=== PATIENT | female | born 1955 | race Caucasian/White ===

== ENCOUNTER → 2017-10-12 | Outpatient (CLI) | payer MEDICAID ==
--- NOTE | 2017-10-12 13:36 | RADIOLOGY REPORT (SQ) ---
EXAM DESCRIPTION: HIP LEFT AP/LATERAL COMPLETED DATE/TIME: 10/12/2017 11:01 am REASON FOR STUDY: CHRONIC LEFT HIP PAIN M25.559 PAIN IN UNSPECIFIED HIP COMPARISON: None. NUMBER OF VIEWS: Two views. TECHNIQUE: AP pelvis and additional frog-leg view of the left hip. LIMITATIONS: None. FINDINGS: There is joint space narrowing in both hips with near bone on bone contact in the left hip . Subchondral cyst formation left hip. Spondylosis and lower lumbar scoliosis. SI joints are khushboo l. IMPRESSION: Osteoarthritis. TECHNICAL DOCUMENTATION: JOB ID: [id number] [employer]- All Rights Reserved Reading location - IP/workstation name: [email or web address]
== END ==
LOC: OD 10:40
PROVIDERS: ATTEND Family Medicine
DX: M25.552 Pain in left hip (principal); M16.12 Unilateral primary osteoarthritis, left hip

== ENCOUNTER → 2017-11-18 | Day surgery (SDC) | payer MEDICAID ==
[~2017-11-18] MED LIST: BUPIVACAINE HCL 0.5 % INJ/PF 30 ML SDV ONE; LIDOCAINE 1% INJ-PF (10 MG/ML) 30 ML SDV ONE; METHYLPREDNISOLONE ACETATE INJ 40 MG/1 ML ML ONE
--- NOTE | 2017-11-18 14:17 | RADIOLOGY REPORT (SQ) ---
EXAM DESCRIPTION: INJECT/ASPIR HIP/SHLDR/KNEE; FLUORO/NEEDLE PLACEMENT COMPLETED DATE/TIME: 11/18/2017 1:30 pm; 11/18/2017 1:31 pm REASON FOR STUDY: M16.12 UNILATERAL PRIMARY OSTEOARTHRITIS, LEFT HIP M16.12 UNILATERAL PRIMARY OSTE OARTHRITIS, LEFT HIP COMPARISON: Left hip films 10/12/2017 FLUOROSCOPY TIME: 23 seconds 1 digital radiographic image saved to PACS. LIMITATIONS: None. PROCEDURE: SITE OF INJECTION: Left hip LOCALIZING CONTRAST TYPE AND DOSE: 1 mL of Isovue-300 MEDICATION TYPE AND DOSE: 80 mg of Depo-Medrol, 5 mL of 0.5% bupivacaine Using local anesthesia and sterile technique with fluoroscopic guidance, the 22 gauge spinal needle w as advanced into the joint. Iodinated contrast was injected to verify intraarticular placement. This was followed by therapeutic injection of the indicated medications. The needle was removed. There were no immediate complications. Preprocedure pain level: 8/10. Postprocedure pain level: 0/10. IMPRESSION: THERAPEUTIC INJECTION OF THE left hip JOINT ABOVE. COMMENT: Patient medication list reviewed: Yes- Quality ID# [id number]:Eligible professional attests to doc umenting in the medical record they obtained, updated, or reviewed the patient's current medications. . Quality ID 145: Final reports for procedures using fluoroscopy that document radiation exposure agusto sandy, or exposure time and number of fluorographic images (if radiation exposure indices are not avail able) TECHNICAL DOCUMENTATION: JOB ID: [id number] [employer]- All Rights Reserved Reading location - IP/workstation name: [email or web address]
--- NOTE | 2017-11-18 14:17 | RADIOLOGY REPORT (SQ) ---
EXAM DESCRIPTION: INJECT/ASPIR HIP/SHLDR/KNEE; FLUORO/NEEDLE PLACEMENT COMPLETED DATE/TIME: 11/18/2017 1:30 pm; 11/18/2017 1:31 pm REASON FOR STUDY: M16.12 UNILATERAL PRIMARY OSTEOARTHRITIS, LEFT HIP M16.12 UNILATERAL PRIMARY OSTE OARTHRITIS, LEFT HIP COMPARISON: Left hip films 10/12/2017 FLUOROSCOPY TIME: 23 seconds 1 digital radiographic image saved to PACS. LIMITATIONS: None. PROCEDURE: SITE OF INJECTION: Left hip LOCALIZING CONTRAST TYPE AND DOSE: 1 mL of Isovue-300 MEDICATION TYPE AND DOSE: 80 mg of Depo-Medrol, 5 mL of 0.5% bupivacaine Using local anesthesia and sterile technique with fluoroscopic guidance, the 22 gauge spinal needle w as advanced into the joint. Iodinated contrast was injected to verify intraarticular placement. This was followed by therapeutic injection of the indicated medications. The needle was removed. There were no immediate complications. Preprocedure pain level: 8/10. Postprocedure pain level: 0/10. IMPRESSION: THERAPEUTIC INJECTION OF THE left hip JOINT ABOVE. COMMENT: Patient medication list reviewed: Yes- Quality ID# [id number]:Eligible professional attests to doc umenting in the medical record they obtained, updated, or reviewed the patient's current medications. . Quality ID 145: Final reports for procedures using fluoroscopy that document radiation exposure agusto sandy, or exposure time and number of fluorographic images (if radiation exposure indices are not avail able) TECHNICAL DOCUMENTATION: JOB ID: [id number] [employer]- All Rights Reserved Reading location - IP/workstation name: [email or web address]
== END ==
LOC: RAD 12:35
PROVIDERS: ATTEND Orthopaedic Surgery
DX: M16.12 Unilateral primary osteoarthritis, left hip (principal)
CPT/HCPCS: 20610; 77002; J3490 ×2; J1020

== ENCOUNTER 2019-03-16 14:53 | Inpatient (IN) | payer MEDICAID ==
[~2019-03-16 14:53] MED LIST changes: -BUPIVACAINE HCL 0.5 % INJ/PF 30 ML SDV ONE; -LIDOCAINE 1% INJ-PF (10 MG/ML) 30 ML SDV ONE; -METHYLPREDNISOLONE ACETATE INJ 40 MG/1 ML ML ONE; +REGADENOSON INJ 0.4 MG/5 ML DISP.SYRIN IV ONE
[2019-03-16] MEDS ORDERED: FENTANYL CITRATE INJ/PF 100 MCG/2 ML AMPUL IV ONE (15:35)
--- NOTE | 2019-03-16 15:44 | ER Document Report ---
ED Hip Pain/Injury - General Chief Complaint: Hip Pain Stated Complaint: LEFT HIP PAIN Time Seen by Provider: 03/16/19 15:09 Primary Care Provider: CARROL LANDIS MD [NO LOCAL MD] - Follow up as needed Notes: 63-year-old female with remote history of PE and ACS x2 with chronic degenerative hip problems presents to the emergency department after fall x2 on a wet floor at her house prior to arrival. Patient states that she is working with [facility] and they are trying to put off a hip replacement for as long as possible to feel that she does need one. Patient states that she was always in pain but it comes and goes and after she fell she states that it "felt like it popped out but did not pop back in". No clear history of hip dislocations. Denies acute shortness of breath or chest pain. Patient cannot bear any weight on at all and cannot move it at all secondary to pain. Posterior tibialis pulse was palpated and she has brisk cap refill. Patient is in acute pain and my exam was limited pending analgesia. TRAVEL OUTSIDE OF THE [place] IN LAST 30 DAYS: No - Related Data Allergies/Adverse Reactions: No Known Allergies Allergy (Verified 10/01/15 15:13) Past Medical History - Social History Smoking Status: Unknown if Ever Smoked Family History: CAD Patient has suicidal ideation: No Patient has homicidal ideation: No - Past Medical History Cardiac Medical History: Reports: Hx Heart Attack, Hx Hypercholesterolemia, Hx Hypertension Past Surgical History: Reports: Hx Tubal Ligation - Immunizations Immunizations up to date: Yes Hx Diphtheria, Pertussis, Tetanus Vaccination: Yes Review of Systems - Review of Systems Constitutional: See HPI EENT: No symptoms reported Cardiovascular: See HPI Respiratory: See HPI Gastrointestinal: No symptoms reported Genitourinary: No symptoms reported Female Genitourinary: No symptoms reported Musculoskeletal: See HPI Skin: No symptoms reported Hematologic/Lymphatic: No symptoms reported Neurological/Psychological: See HPI Physical Exam - Vital signs Vitals: Temp Pulse Resp BP Pulse Ox 98.3 F 70 18 148/74 H 98 03/16/19 15:05 03/16/19 15:05 03/16/19 15:05 03/16/19 15:05 03/16/19 15:05 - Notes Notes: PHYSICAL EXAMINATION: Reviewed vital signs and charting by RN GENERAL: Alert, interacts well. No acute distress. HEAD: Normocephalic, atraumatic. EYES: Pupils equal and round. Extraocular movements intact. ENT: Oral mucosa moist, tongue midline. NECK: Full range of motion. Trachea midline. ABDOMEN: soft, non-tender. No distention. Bowel sounds present EXTREMITIES: Patient is resting her left leg in any position of comfort and she is unable to move it secondary to pain, posterior tibialis pulse palpated 1+, brisk cap refill, no tenderness to palpation over the knee or the ankle, there appears to be a deformity of the left hip but unclear if that is due to positioning PSYCH: Normal affect, normal mood. SKIN: Warm, dry, normal turgor. No rashes or lesions noted. Course - Re-evaluation Re-evalutation: 03/16/19 15:45 Patient is in mild distress and nontoxic appearing, when trying to manipulate her leg she is in acute pain. Even pulling off her shoe elicited significant pain. I am going to place an IV, give her fentanyl 50 mcg once prior to x-ray to help assist with positioning. 03/16/19 17:37 Patient was still in acute pain and I gave her Dilaudid 0.5 mg IV once. X-ray was complete which did show a left intertrochanteric fracture with varus deformity. I called Dr. Wilder, orthopedic surgeon on-call, who requested, because of her medical history, she be admitted under medicine for medical clearance prior to performing surgery in the morning. I spoke with Dr. Arnett, hospitalist, who accepted the patient for full admission to the telemetry unit. - Vital Signs Vital signs: Temp Pulse Resp BP Pulse Ox 98.3 F 70 18 148/74 H 98 03/16/19 15:05 03/16/19 15:05 03/16/19 15:05 03/16/19 15:05 03/16/19 15:05 - Laboratory Result Diagrams: 03/16/19 17:25 03/16/19 17:25 Discharge - Discharge Clinical Impression: Intertrochanteric fracture of left femur Qualifiers: Encounter type: initial encounter Fracture type: closed Fracture alignment: displaced Qualified Code(s): S72.142A - Displaced intertrochanteric fracture of left femur, initial encounter for closed fracture Condition: Stable Disposition: ADMITTED INPATIENT Admitting Provider: Beto (Hospitalist) Unit Admitted: Telemetry Referrals: CARROL LANDIS MD [NO LOCAL MD] - Follow up as needed
[2019-03-16] MEDS ORDERED: HYDROMORPHONE HCL INJ/PF 2 MG/ML AMPULE IV ONE (16:10)
--- NOTE | 2019-03-16 17:11 | RADIOLOGY REPORT (SQ) ---
EXAM DESCRIPTION: HIP LEFT AP/LATERAL COMPLETED DATE/TIME: 03/16/2019 4:57 pm REASON FOR STUDY: Fall and pain with ambulation. COMPARISON: 03/05/2016 NUMBER OF VIEWS: Two views. TECHNIQUE: AP and frog-leg view of the left hip. LIMITATIONS: None. FINDINGS: MINERALIZATION: Normal. LEFT HIP: There is an intratrochanteric left hip fracture with resulting varus deformity. OPPOSITE HIP: Degenerative changes only. SOFT TISSUES: No findings. OTHER: No other significant finding. IMPRESSION: Intratrochanteric left hip fracture. Resulting varus deformity. COMMENT: Pelvic fractures are often occult on plain radiographs. If strong clinical suspicion for f racture, recommend CT or MR. TECHNICAL DOCUMENTATION: JOB ID: [id number] [employer]- All Rights Reserved Reading location - IP/workstation name: [email or web address]
[2019-03-16 17:41] LABS: ABSOLUTE LYMPHOCYTES (AUTO) 0.9 10^3/uL (0.5-4.7); ABSOLUTE MONOCYTES (AUTO) 0.7 10^3/uL (0.1-1.4); ABSOLUTE NEUT (AUTO) 10.2 10^3/uL (1.7-8.2); BASOPHILS % (AUTO) 0.2 % (0-2); HEMATOCRIT 36.3 % (36.0-47.0); HEMOGLOBIN 12.5 g/dL (12.0-15.5); LYMPHOCYTES % (AUTO) 7.5 % (13-45); MEAN CORPUSCULAR HEMOGLOBIN 31.2 pg (27.0-33.4); MEAN CORPUSCULAR HGB CONC 34.5 g/dL (32.0-36.0); MEAN CORPUSCULAR VOLUME 91 fl (80-97); MONOCYTES % (AUTO) 5.8 % (3-13); PLATELET COUNT 233 10^3/uL (150-450); RED BLOOD COUNT 4.01 10^6/uL (3.72-5.28); SEGMENTED NEUTROPHILS % (AUTO) 86.5 % (42-78); TOTAL CELLS COUNTED % (AUTO) 100 %; WHITE BLOOD COUNT 11.8 10^3/uL (4.0-10.5)
[2019-03-16 17:48] LABS: INTERNATIONAL RATION (INR) 1.21; PROTHROMBIN TIME 15.4 SEC (11.4-15.4)
[2019-03-16 17:56] LABS: ALBUMIN 3.1 g/dL (3.5-5.0); ALKALINE PHOSPHATASE 70 U/L (38-126); ANION GAP 9 (5-19); ASPARTATE AMINO TRANSFERASE 25 U/L (14-36); BILIRUBIN,DIRECT 0.2 mg/dL (0.0-0.4); BILIRUBIN,TOTAL 0.2 mg/dL (0.2-1.3); BLOOD UREA NITROGEN 17 mg/dL (7-20); CALCIUM 7.7 mg/dL (8.4-10.2); CARBON DIOXIDE 20 mmol/L (22-30); CHLORIDE 111 mmol/L (98-107); GLUCOSE 92 mg/dL (75-110); TOTAL PROTEIN 5.7 g/dL (6.3-8.2)
[2019-03-16 18:00] LABS: POTASSIUM 2.7 mmol/L (3.6-5.0)
[2019-03-16] MEDS ORDERED: POTASSIUM CHLORIDE 10 MEQ CAPSULE.ER PO ONE (18:02)
[2019-03-16] MEDS: POTASSI CL 20 MEQ/50 ML RIDER 20 MEQ/50 ML RTUPB IV SCH ×2 (18:37→20:20)
[2019-03-16] MEDS ORDERED: ONDANSETRON HCL INJ/PF 4 MG/2 ML SDV IV PRN (19:21)
[2019-03-16] MEDS ORDERED: IPRATROPIUM/ALBUTEROL 0.5-2.5 MG/3 ML AMPUL NEB PRN (19:21)
[2019-03-16] MEDS ORDERED: MAG HYDROX/AL HYDROX/SIMETH SUSP 30 ML UDCUP PO PRN (19:21)
[2019-03-16] MEDS ORDERED: MAGNESIUM HYDROXIDE SUSP 30 ML UDCUP PO PRN (19:21)
[2019-03-16] MEDS ORDERED: ACETAMINOPHEN 325 MG TABLET PO PRN (19:21)
[2019-03-16] MEDS ORDERED: ACETAMINOPHEN 650 MG SUPP.RECT PR PRN (19:21)
[2019-03-16] MEDS ORDERED: BISACODYL 5 MG TABEC PO PRN (19:45)
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
[2019-03-16] MEDS: FENTANYL CITRATE INJ/PF 100 MCG/2 ML AMPUL IV PRN (20:19)
[2019-03-16] MEDS: IBUPROFEN 800 MG TABLET PO PRN (21:17)
[2019-03-16 21:27] LABS: AMORPHOUS SEDIMENT,URINE TRACE /HPF; APPEARANCE,URINE CLOUDY; BILIRUBIN,URINE NEGATIVE (NEGATIVE); COLOR,URINE AMBER; GLUCOSE, URINE NEGATIVE (NEGATIVE); KETONES,URINE 20 mg/dL (NEGATIVE); LEUKOCYTE ESTERASE,URINE SMALL (NEGATIVE); NITRITE,URINE NEGATIVE (NEGATIVE); PROTEIN,URINE 30 mg/dL (NEGATIVE); URINE SPECIFIC GRAVITY 1.028
[2019-03-16] MEDS: METOPROLOL TARTRATE 25 MG TABLET PO SCH (23:22)
[2019-03-17] MEDS ORDERED: NICOTINE 21 MG/24 HR PATCH.TD24 ONE (02:18)
[2019-03-17] MEDS: NICOTINE 21 MG/24 HR PATCH.TD24 TD PRN (02:27)
[2019-03-17] MEDS: DEXTROSE 5%-NORMAL SALINE 1,000 ML IV PRN ×4 (02:28→21:15)
[2019-03-17] MEDS: TEMAZEPAM 15 MG CAPSULE PO PRN ×2 (02:32→21:15)
[2019-03-17] MEDS: PANTOPRAZOLE SODIUM 40 MG TABLET.DR PO SCH (05:55)
[2019-03-17] MEDS: FENTANYL CITRATE INJ/PF 100 MCG/2 ML AMPUL IV PRN ×3 (05:57→15:05)
[2019-03-17 06:15] LABS: ABSOLUTE LYMPHOCYTES (AUTO) 1.1 10^3/uL (0.5-4.7); ABSOLUTE MONOCYTES (AUTO) 0.6 10^3/uL (0.1-1.4); ABSOLUTE NEUT (AUTO) 4.3 10^3/uL (1.7-8.2); BASOPHILS % (AUTO) 0.3 % (0-2); EOSINOPHILS % (AUTO) 0.1 % (0-6); HEMATOCRIT 34.8 % (36.0-47.0); HEMOGLOBIN 11.9 g/dL (12.0-15.5); LYMPHOCYTES % (AUTO) 18.5 % (13-45); MEAN CORPUSCULAR HEMOGLOBIN 31.3 pg (27.0-33.4); MEAN CORPUSCULAR HGB CONC 34.1 g/dL (32.0-36.0); MEAN CORPUSCULAR VOLUME 92 fl (80-97); MONOCYTES % (AUTO) 9.8 % (3-13); PLATELET COUNT 219 10^3/uL (150-450); SEGMENTED NEUTROPHILS % (AUTO) 71.3 % (42-78); TOTAL CELLS COUNTED % (AUTO) 100 %
[2019-03-17 06:39] LABS: ANION GAP 8 (5-19); BLOOD UREA NITROGEN 20 mg/dL (7-20); CALCIUM 8.8 mg/dL (8.4-10.2); CARBON DIOXIDE 25 mmol/L (22-30); CHLORIDE 108 mmol/L (98-107); GLUCOSE 122 mg/dL (75-110); POTASSIUM 3.3 mmol/L (3.6-5.0)
--- NOTE | 2019-03-17 08:01 | PDOC CONSULTATION ---
Consultation Consult Date: 03/17/19 Attending physician:: CHELO MOSLEY Provider Consulted: RADHA MANJARREZ History of Present Illness Admission Date/PCP: 03/16/19 19:28 BRUNILDA CHAMPION PA-C Patient complains of: Left hip pain History of Present Illness: BEKAH IBANEZ is a 63 year old female who is a community ambulator with previous NH history and pulmonary embolism history who was cleaning up her dog in the bathroom when she inadvertently tripped falling onto her left hip. She attempted to ambulate but once again fell was unable to ambulate. He was brought to emergency room where x-rays demonstrated fracture. Patient states her pain was worse with any motion has slightly improved with current pain regimen. Denies numbness or tingling. She has had extensive work-up in her left hip for osteoarthritis. Current pain 5/5. Past Medical History Cardiac Medical History: Reports: Myocardial Infarction, Hyperlipidema, Hype rtension, Pulmonary Embolism Pulmonary Medical History: Reports: Chronic Obstructive Pulmonary Disease (COPD) EENT Medical History: Reports: Eyes - Posttrauma head plastic lens implant Neurological Medical History: Denies: Hemorrhagic CVA, Ischemic CVA, Multiple Sclerosis Endocrine Medical History: Denies: Diabetes Mellitus Type 1, Diabetes Mellitus Type 2, Hyperthyroidism, Hypothyroidism, Obesity Renal/ Medical History: Denies: Chronic Kidney Disease, Nephrolithiasis Malignancy Medical History: Reports: None GI Medical History: Reports: None Musculoskeltal Medical History: Reports: Arthritis, Other - Chronic low back pain Skin Medical History: Reports: None Psychiatric Medical History: Reports: Depression, Tobacco Dependency Denies: Alcohol Dependency, Bipolar Disorder Traumatic Medical History: Reports: Other Hematology: Denies: Anemia, Bleeding Tendencies, Heparin Induced Thrombocytopenia Infectious Medical History: Reports: None Past Surgical History Past Surgical History: Reports: Tubal Ligation Social History Lives with: Alone Smoking Status: Current Every Day Smoker Cigarettes Packs Per Day: 1 Frequency of Alcohol Use: None Hx Recreational Drug Use: No - Patient states no but looking through old records it does mention substance Drugs: None Hx Prescription Drug Abuse: No - Advance Directive Resuscitation Status: Full Code Family History Family History: CAD, COPD, Other - Parkinson's disease, vascular disease with aneurysm Parental Family History Reviewed: No Children Family History Reviewed: No Sibling(s) Family History Reviewed.: No Medication/Allergy Home Medications: Clonazepam [Klonopin 1 mg Tablet] 1 mg PO BID 03/16/19 Duloxetine HCl [Cymbalta 20 mg Capsule.dr] 20 mg PO DAILY 03/16/19 Ibuprofen [Motrin 800 mg Tablet] 800 mg PO Q8HP PRN 03/16/19 Metoprolol Tartrate [Lopressor 25 mg Tablet] 25 mg PO Q12 03/16/19 Tramadol HCl [Ultram 50 mg Tablet] 50 mg PO Q8HP PRN 03/16/19 Allergies/Adverse Reactions: Xakjvhn-Gfs-Bgb Reductase Inhibitor Allergy (Intermediate, Verified 03/16/19 19:59) Blisters Review of Systems Constitutional: ABSENT: chills, fever(s), headache(s), weight gain, weight loss Eyes: ABSENT: visual disturbances Ears: ABSENT: hearing changes Cardiovascular: ABSENT: chest pain, dyspnea on exertion, edema, orthropnea, palpitations Respiratory: ABSENT: cough, hemoptysis Gastrointestinal: ABSENT: abdominal pain, constipation, diarrhea, hematemesis, hematochezia, nausea, vomiting Genitourinary: ABSENT: dysuria, hematuria Musculoskeletal: PRESENT: as per HPI Integumentary: ABSENT: rash, wounds Neurological: ABSENT: abnormal gait, abnormal speech, confusion, dizziness, foca l weakness, syncope Psychiatric: ABSENT: anxiety, depression, homidical ideation, suicidal ideation Endocrine: ABSENT: cold intolerance, heat intolerance, menstrual abnormalities, polydipsia, polyuria Hematologic/Lymphatic: ABSENT: easy bleeding, easy bruising, lymphadenopathy Physical Exam Vital Signs: Temp Pulse Resp BP Pulse Ox 98.3 F 61 17 116/61 98 03/16/19 23:22 03/17/19 02:00 03/16/19 23:22 03/16/19 23:22 03/16/19 23:22 Intake & Output 03/16/19 03/17/19 03/18/19 06:59 06:59 06:59 Intake Total 93 Output Total 300 Balance -207 Weight 45.8 kg General appearance: PRESENT: no acute distress, well-developed, well-nourished Head exam: PRESENT: atraumatic, normocephalic Eye exam: PRESENT: conjunctiva pink, EOMI, PERRLA. ABSENT: scleral icterus Ear exam: PRESENT: normal external ear exam Mouth exam: PRESENT: moist, tongue midline Teeth exam: PRESENT: poor dentation Neck exam: PRESENT: full ROM. ABSENT: carotid bruit, JVD, lymphadenopathy, thyromegaly Cardiovascular exam: PRESENT: RRR. ABSENT: diastolic murmur, rubs, systolic murmur Pulses: PRESENT: normal dorsalis pedis pul, +2 pedal pulses bilateral Vascular exam: PRESENT: normal capillary refill GI/Abdominal exam: PRESENT: normal bowel sounds, soft. ABSENT: distended, guarding, mass, organolmegaly, rebound, tenderness Rectal exam: PRESENT: deferred Musculoskeletal exam: PRESENT: other - Left hip: Positive logroll. Short/externally rotated. Moderate thigh swelling without change, intact plantarflexion/dorsiflexion. No sensory deficits. No calf tenderness. Neurological exam: PRESENT: alert, awake, oriented to person, oriented to place, oriented to time, oriented to situation, CN II-XII grossly intact. ABSENT: motor sensory deficit Psychiatric exam: PRESENT: appropriate affect, normal mood. ABSENT: homicidal ideation, suicidal ideation Skin exam: PRESENT: dry, intact, warm. ABSENT: cyanosis, rash Results Laboratory Results: 03/17/19 05:25 03/17/19 05:25 03/16/19 03/16/19 03/16/19 16:37 17:25 17:25 WBC 11.8 H RBC 4.01 Hgb 12.5 Hct 36.3 MCV 91 MCH 31.2 MCHC 34.5 RDW 13.0 Plt Count 233 Seg Neutrophils % 86.5 H Sodium 140.4 Potassium 2.7 L* Chloride 111 H Carbon Dioxide 20 L Anion Gap 9 BUN 17 Creatinine 0.59 Est GFR ( Amer) > 60 Glucose 92 Calcium 7.7 L Magnesium Total Bilirubin 0.2 AST 25 Alkaline Phosphatase 70 Total Protein 5.7 L Albumin 3.1 L TSH Urine Color SHELBY Urine Appearance CLOUDY Urine pH 5.0 Ur Specific [place] 1.028 Urine Protein 30 H Urine Glucose (UA) NEGATIVE Urine Ketones 20 H Urine Blood MODERATE H Urine Nitrite NEGATIVE Ur Leukocyte Esterase SMALL H Urine WBC (Auto) 20 Urine RBC (Auto) 15 Blood Type Antibody Screen 03/16/19 03/17/19 03/17/19 17:25 05:25 05:25 WBC 6.0 RBC 3.80 Hgb 11.9 L Hct 34.8 L MCV 92 MCH 31.3 MCHC 34.1 RDW 13.0 Plt Count 219 Seg Neutrophils % 71.3 Sodium 141.2 Potassium 3.3 L Chloride 108 H Carbon Dioxide 25 Anion Gap 8 BUN 20 Creatinine 0.60 Est GFR ( Amer) > 60 Glucose 122 H Calcium 8.8 Magnesium 1.9 Total Bilirubin AST Alkaline Phosphatase Total Protein Albumin TSH Urine Color Urine Appearance Urine pH Ur Specific [place] Urine Protein Urine Glucose (UA) Urine Ketones Urine Blood Urine Nitrite Ur Leukocyte Esterase Urine WBC (Auto) Urine RBC (Auto) Blood Type A POSITIVE Antibody Screen NEGATIVE 03/17/19 05:25 WBC RBC Hgb Hct MCV MCH MCHC RDW Plt Count Seg Neutrophils % Sodium Potassium Chloride Carbon Dioxide Anion Gap BUN Creatinine Est GFR ( Amer) Glucose Calcium Magnesium Total Bilirubin AST Alkaline Phosphatase Total Protein Albumin TSH 0.65 Urine Color Urine Appearance Urine pH Ur Specific [place] Urine Protein Urine Glucose (UA) Urine Ketones Urine Blood Urine Nitrite Ur Leukocyte Esterase Urine WBC (Auto) Urine RBC (Auto) Blood Type Antibody Screen Impressions: Hip X-Ray 03/16/19 00:00 IMPRESSION: Intratrochanteric left hip fracture. Resulting varus deformity. Status: Image reviewed by - I have reviewed patient's radiographs which demonstrate intertrochanteric left hip fracture with associated osteoarthritis Assessment & Plan - Diagnosis (1) Intertrochanteric fracture of left femur Qualifiers: Encounter type: initial encounter Fracture type: closed Fracture alignment: displaced Qualified Code(s): S72.142A - Displaced intertrochanteric fracture of left femur, initial encounter for closed fracture Is this a current diagnosis for this admission?: Yes Plan: Patient sustained a left intertrochanteric hip fracture unfortunately she has associated osteoarthritis but given the location of the fracture primary total hip arthroplasty is not indicated and patient understands she may require future surgery given her osteoarthritis but currently plan is to proceed with definitive fixation. Once patient is medically cleared for operative intervention we will proceed with operative treatment. Plan is to proceed with operative intervention on 03/17/2019. Surgical procedure has been explained to the patient procedure includes left hip intramedullary nail risk and benefits have been explained patient is verbalized understanding consented for surgical procedure. Risks explained include anesthetic complications, excessive bleeding, infection, injury to surrounding nerves, vessels and tendons, br uising, healing difficulties, scar formation, hardware complication, posttraumatic arthritis and any unforseen complication.
--- NOTE | 2019-03-17 08:14 | EKG REPORT ---
SEVERITY:- ABNORMAL ECG - SINUS RHYTHM ABNORMAL T, CONSIDER ISCHEMIA, DIFFUSE LEADS PROLONGED QT INTERVAL : Confirmed by: Rica Dexter MD 17-Mar-2019 08:13:01
--- NOTE | 2019-03-17 08:14 | EKG REPORT ---
SEVERITY:- ABNORMAL ECG - SINUS BRADYCARDIA NONSPECIFIC T ABNORMALITIES, DIFFUSE LEADS : Confirmed by: Rica Dexter MD 17-Mar-2019 08:13:18
[2019-03-17] MEDS: KETOROLAC TROMETHAMINE INJ/PF 30 MG/1 ML SDV IV PRN (09:29)
[2019-03-17] MEDS: POTASSI CL 20 MEQ/50 ML RIDER 20 MEQ/50 ML RTUPB IV SCH ×2 (09:30→11:07)
[2019-03-17] MEDS: DOCUSATE SODIUM 100 MG CAPSULE PO SCH ×2 (09:34→19:30)
[2019-03-17] MEDS: METOPROLOL TARTRATE 25 MG TABLET PO SCH ×2 (09:34→21:14)
[2019-03-17] MEDS ORDERED: NICOTINE 21 MG/24 HR PATCH.TD24 TD PRN (10:00)
[2019-03-17] MEDS: LISINOPRIL 5 MG TABLET PO SCH (10:00)
--- NOTE | 2019-03-17 15:06 | PDOC PROGRESS REPORT ---
Subjective Progress Note for:: 03/17/19 Subjective:: This is a 63 year old female with a history of coronary artery disease ([place] 2016- no stenting or intervention) and pulmonary embolism at 21 years old likely from oral contraceptives who sustained a left subcapital fracture after a mechanical fall. No acute event overnight. She does complain of pain in the left hip. Denies chest pain shortness of breath or chest pain. Reason For Visit: LEFT HIP FRACTURE Physical Exam Vital Signs: Temp Pulse Resp BP Pulse Ox 98.6 F 63 16 125/70 100 03/17/19 11:08 03/17/19 11:08 03/17/19 11:08 03/17/19 11:08 03/17/19 11:08 Intake & Output 03/16/19 03/17/19 03/18/19 06:59 06:59 06:59 Intake Total 93 1078 Output Total 300 Balance -207 1078 Weight 100 lb 15.547 oz General appearance: PRESENT: no acute distress, well-developed, well-nourished Head exam: PRESENT: atraumatic, normocephalic Eye exam: PRESENT: conjunctiva pink, EOMI, PERRLA. ABSENT: scleral icterus Ear exam: PRESENT: normal external ear exam Neck exam: ABSENT: carotid bruit, JVD, lymphadenopathy, thyromegaly Respiratory exam: PRESENT: clear to auscultation heriberto. ABSENT: rales, rhonchi, wheezes Cardiovascular exam: PRESENT: RRR. ABSENT: diastolic murmur, rubs, systolic murmur Pulses: PRESENT: normal dorsalis pedis pul GI/Abdominal exam: PRESENT: normal bowel sounds, soft. ABSENT: distended, guarding, mass, organolmegaly, rebound, tenderness Rectal exam: PRESENT: deferred Extremities exam: PRESENT: full ROM. ABSENT: calf tenderness, clubbing, pedal edema Neurological exam: PRESENT: alert, awake, oriented to person, oriented to place, oriented to time, oriented to situation, CN II-XII grossly intact. ABSENT: motor sensory deficit Results Laboratory Results: 03/17/19 05:25 03/17/19 05:25 03/16/19 03/16/19 03/16/19 16:37 17:25 17:25 WBC 11.8 H RBC 4.01 Hgb 12.5 Hct 36.3 MCV 91 MCH 31.2 MCHC 34.5 RDW 13.0 Plt Count 233 Seg Neutrophils % 86.5 H Sodium 140.4 Potassium 2.7 L* Chloride 111 H Carbon Dioxide 20 L Anion Gap 9 BUN 17 Creatinine 0.59 Est GFR ( Amer) > 60 Glucose 92 Calcium 7.7 L Magnesium Total Bilirubin 0.2 AST 25 Alkaline Phosphatase 70 Total Protein 5.7 L Albumin 3.1 L TSH Urine Color [place] Urine Appearance CLOUDY Urine pH 5.0 Ur Specific [place] 1.028 Urine Protein 30 H Urine Glucose (UA) NEGATIVE Urine Ketones 20 H Urine Blood MODERATE H Urine Nitrite NEGATIVE Ur Leukocyte Esterase SMALL H Urine WBC (Auto) 20 Urine RBC (Auto) 15 Blood Type Antibody Screen 03/16/19 03/17/19 03/17/19 17:25 05:25 05:25 WBC 6.0 RBC 3.80 Hgb 11.9 L Hct 34.8 L MCV 92 MCH 31.3 MCHC 34.1 RDW 13.0 Plt Count 219 Seg Neutrophils % 71.3 Sodium 141.2 Potassium 3.3 L Chloride 108 H Carbon Dioxide 25 Anion Gap 8 BUN 20 Creatinine 0.60 Est GFR ( Amer) > 60 Glucose 122 H Calcium 8.8 Magnesium 1.9 Total Bilirubin AST Alkaline Phosphatase Total Protein Albumin TSH Urine Color Urine Appearance Urine pH Ur Specific [place] Urine Protein Urine Glucose (UA) Urine Ketones Urine Blood Urine Nitrite Ur Leukocyte Esterase Urine WBC (Auto) Urine RBC (Auto) Blood Type A POSITIVE Antibody Screen NEGATIVE 03/17/19 05:25 WBC RBC Hgb Hct MCV MCH MCHC RDW Plt Count Seg Neutrophils % Sodium Potassium Chloride Carbon Dioxide Anion Gap BUN Creatinine Est GFR ( Amer) Glucose Calcium Magnesium Total Bilirubin AST Alkaline Phosphatase Total Protein Albumin TSH 0.65 Urine Color Urine Appearance Urine pH Ur Specific [place] Urine Protein Urine Glucose (UA) Urine Ketones Urine Blood Urine Nitrite Ur Leukocyte Esterase Urine WBC (Auto) Urine RBC (Auto) Blood Type Antibody Screen Impressions: Hip X-Ray 03/16/19 00:00 IMPRESSION: Intratrochanteric left hip fracture. Resulting varus deformity. Assessment and Plan - Diagnosis (1) Intertrochanteric fracture of left femur Qualifiers: Encounter type: initial encounter Fracture type: closed Fracture alignment: displaced Qualified Code(s): S72.142A - Displaced intertrochanteric fracture of left femur, initial encounter for closed fracture Is this a current diagnosis for this admission?: Yes Plan: Patient is scheduled for surgery this afternoon. However with new EKG changes, will pursue stress testing and reschedule surgical intervention. (2) Abnormal EKG Is this a current diagnosis for this admission?: Yes Plan: Patient has T wave inversions in inferior leads comparing it to previous EKG in 2016. She denies any chest pain or shortness of breath. Discussed with cardiology, will schedule for stress testing tomorrow morning. (3) CAD (coronary artery disease) Is this a current diagnosis for this admission?: Yes (4) Chronic back pain Qualifiers: Back pain location: low back pain Back pain laterality: midline Sciatica presence: without sciatica Qualified Code(s): M54.5 - Low back pain; G89.29 - Other chronic pain Is this a current diagnosis for this admission?: Yes (5) Hypertension Qualifiers: Hypertension type: essential hypertension Qualified Code(s): I10 - Essential (primary) hypertension Is this a current diagnosis for this admission?: Yes (6) Hypokalemia Is this a current diagnosis for this admission?: Yes Plan: Improved but still low. Will replace with another 40 meqs IV. - Time Time Spent with patient: 25-34 minutes
[2019-03-17] MEDS: ENOXAPARIN SODIUM INJ 40 MG/0.4 ML DISP.SYRIN SUBCUT SCH (15:18)
[2019-03-17] MEDS: DULOXETINE HCL 20 MG CAPSULE.DR PO SCH (19:30)
[2019-03-17] MEDS: CLONAZEPAM 1 MG TABLET PO SCH ×2 (19:31)
[2019-03-18] MEDS: FENTANYL CITRATE INJ/PF 100 MCG/2 ML AMPUL IV PRN ×5 (03:00→17:27)
[2019-03-18] MEDS: PANTOPRAZOLE SODIUM 40 MG TABLET.DR PO SCH (06:00)
[2019-03-18] MEDS: DEXTROSE 5%-NORMAL SALINE 1,000 ML IV PRN (06:50)
--- NOTE | 2019-03-18 06:53 | PDOC PROGRESS REPORT ---
Subjective Progress Note for:: 03/18/19 Subjective:: Left hip pain Reason For Visit: LEFT HIP FRACTURE 63-year-old white female admitted with a left intratrochanteric femur fracture. Plan for ORIF pending cardiac clearance. Physical Exam Vital Signs: Temp Pulse Resp BP Pulse Ox 36.9 C 61 16 107/61 96 03/17/19 23:00 03/18/19 02:00 03/17/19 23:00 03/17/19 23:00 03/17/19 23:00 Intake & Output 03/16/19 03/17/19 03/18/19 06:59 06:59 06:59 Intake Total 93 2628 Output Total 300 850 Balance -207 1778 Weight 45.8 kg 45.9 kg General appearance: PRESENT: mild distress, severe distress, thin Head exam: PRESENT: normocephalic Respiratory exam: PRESENT: unlabored Cardiovascular exam: PRESENT: RRR Vascular exam: PRESENT: normal capillary refill GI/Abdominal exam: PRESENT: soft Rectal exam: PRESENT: deferred Extremities exam: PRESENT: other - Left lower extremity held in extension. Wrist capillary refill to the toes. Results Laboratory Results: 03/17/19 05:25 03/17/19 05:25 03/17/19 05:25 TSH 0.65 03/17/19 13:19 Troponin I < 0.012 Impressions: Hip X-Ray 03/16/19 00:00 IMPRESSION: Intratrochanteric left hip fracture. Resulting varus deformity. Status: Imported from PACS Assessment & Plan - Diagnosis (1) Intertrochanteric fracture of left femur Qualifiers: Encounter type: initial encounter Fracture type: closed Fracture alignment: displaced Qualified Code(s): S72.142A - Displaced intertrochanteric fracture of left femur, initial encounter for closed fracture Is this a current diagnosis for this admission?: Yes Plan: Plan for ORIF today under regional anesthesia pending cardiac clearance - Time Time Spent with patient: 15-24 minutes Anticipated discharge: SNF Within: Other
[2019-03-18] MEDS ORDERED: RINGERS SOLUTION,LACTATED 1,000 ML IV PRN (07:57)
[2019-03-18] MEDS ORDERED: CEFAZOLIN SODIUM 2 GM in DEXTROSE 5%-WATER 100 ML IV PRN (07:58)
[2019-03-18] MEDS ORDERED: TRANEXAMIC ACID INJ/PF 1,000 MG/10 ML SDV IV PRN (08:00)
[2019-03-18] MEDS: KETOROLAC TROMETHAMINE INJ/PF 30 MG/1 ML SDV IV PRN ×2 (08:32→19:05)
[2019-03-18 09:23] LABS: ANION GAP 5 (5-19); BLOOD UREA NITROGEN 10 mg/dL (7-20); CALCIUM 8.2 mg/dL (8.4-10.2); CARBON DIOXIDE 24 mmol/L (22-30); CHLORIDE 109 mmol/L (98-107); GLUCOSE 107 mg/dL (75-110)
--- NOTE | 2019-03-18 09:24 | EKG REPORT ---
SEVERITY:- ABNORMAL ECG - SINUS RHYTHM NONSPECIFIC T ABNORMALITIES, INFERIOR LEADS NS T CHANGES ANTERIOR LEADS : Confirmed by: Rica Dexter MD 18-Mar-2019 09:23:59
[2019-03-18] MEDS: DOCUSATE SODIUM 100 MG CAPSULE PO SCH ×2 (10:41→17:22)
[2019-03-18] MEDS: DULOXETINE HCL 20 MG CAPSULE.DR PO SCH ×2 (10:42→13:20)
[2019-03-18] MEDS: METOPROLOL TARTRATE 25 MG TABLET PO SCH ×3 (10:42→21:15)
[2019-03-18] MEDS: CLONAZEPAM 1 MG TABLET PO SCH ×3 (10:42→17:27)
[2019-03-18] MEDS: LISINOPRIL 5 MG TABLET PO SCH ×2 (10:44→13:18)
[2019-03-18] MEDS: ENOXAPARIN SODIUM INJ 40 MG/0.4 ML DISP.SYRIN SUBCUT SCH (13:20)
[2019-03-18] MEDS: POTASSIUM CHLORIDE 20 MEQ/50 ML RTU IV SCH ×3 (14:47→19:55)
--- NOTE | 2019-03-18 15:38 | PDOC PROGRESS REPORT ---
Subjective Progress Note for:: 03/18/19 Subjective:: This is a 63 year old female with a history of coronary artery disease ([place] 2016- no stenting or intervention) and pulmonary embolism at 21 years old likely from oral contraceptives who sustained a left subcapital fracture after a mechanical fall. 03/17: She does complain of pain in the left hip. Denies chest pain shortness of breath or chest pain. 03/18: No acute event overnight. She denies acute complaints. No chest pain or shortness of breath. Left hip pain is well controlled. She is going for ORIF pending her stress test results. Reason For Visit: LEFT HIP FRACTURE Physical Exam Vital Signs: Temp Pulse Resp BP Pulse Ox 99.1 F 72 28 H 148/69 H 93 03/18/19 13:07 03/18/19 14:00 03/18/19 13:07 03/18/19 13:07 03/18/19 13:07 Intake & Output 03/17/19 03/18/19 03/19/19 06:59 06:59 06:59 Intake Total 93 3628 Output Total 300 850 Balance -207 2778 Weight 100 lb 15.547 oz 101 lb 3.075 oz General appearance: PRESENT: no acute distress, well-developed, well-nourished Head exam: PRESENT: atraumatic, normocephalic Eye exam: PRESENT: conjunctiva pink, EOMI, PERRLA. ABSENT: scleral icterus Ear exam: PRESENT: normal external ear exam Mouth exam: PRESENT: moist, tongue midline Neck exam: ABSENT: carotid bruit, JVD, lymphadenopathy, thyromegaly Respiratory exam: PRESENT: clear to auscultation heriberto. ABSENT: rales, rhonchi, wheezes Cardiovascular exam: PRESENT: RRR. ABSENT: diastolic murmur, rubs, systolic murmur Pulses: PRESENT: normal dorsalis pedis pul GI/Abdominal exam: PRESENT: normal bowel sounds, soft. ABSENT: distended, guarding, mass, organolmegaly, rebound, tenderness Rectal exam: PRESENT: deferred Extremities exam: PRESENT: full ROM. ABSENT: calf tenderness, clubbing, pedal edema Neurological exam: PRESENT: alert, awake, oriented to person, oriented to place, oriented to time, oriented to situation, CN II-XII grossly intact. ABSENT: motor sensory deficit Results Laboratory Results: 03/17/19 05:25 03/18/19 08:51 03/18/19 08:51 Sodium 138.2 Potassium 3.0 L* Chloride 109 H Carbon Dioxide 24 Anion Gap 5 BUN 10 Creatinine 0.39 L Est GFR ( Amer) > 60 Glucose 107 Calcium 8.2 L 03/17/19 13:19 Troponin I < 0.012 Impressions: Hip X-Ray 03/16/19 00:00 IMPRESSION: Intratrochanteric left hip fracture. Resulting varus deformity. Assessment and Plan - Diagnosis (1) Intertrochanteric fracture of left femur Qualifiers: Encounter type: initial encounter Fracture type: closed Fracture alignmen t: displaced Qualified Code(s): S72.142A - Displaced intertrochanteric fracture of left femur, initial encounter for closed fracture Is this a current diagnosis for this admission?: Yes Plan: Left hip pain is well controlled. She is going for ORIF pending her stress test results. (2) Abnormal EKG Is this a current diagnosis for this admission?: Yes Plan: Patient has T wave inversions in inferior leads comparing it to previous EKG in 2016. She is going for stress testing. Replacing potassium as well. (3) Hypokalemia Is this a current diagnosis for this admission?: Yes Plan: Will replace with another 60 meqs IV potassium. Repeat potassium after replacement today. (4) Hypertension Qualifiers: Hypertension type: essential hypertension Qualified Code(s): I10 - Essential (primary) hypertension Is this a current diagnosis for this admission?: Yes Plan: Continue metoprolol and lisinopril. (5) CAD (coronary artery disease) Is this a current diagnosis for this admission?: Yes (6) Chronic back pain Qualifiers: Back pain location: low back pain Back pain laterality: midline Sciatica presence: without sciatica Qualified Code(s): M54.5 - Low back pain; G89.29 - Other chronic pain Is this a current diagnosis for this admission?: Yes - Time Time Spent with patient: 25-34 minutes
[2019-03-18] MEDS ORDERED: DEXTROSE 40% GEL 15 GM TUBE PO PRN ×2 (15:46)
[2019-03-18] MEDS ORDERED: DEXTROSE 50%-WATER 25 GM/50 ML DISP.SYRIN IV PRN ×2 (15:46)
[2019-03-18] MEDS ORDERED: GLUCAGON,HUMAN RECOMB 1 MG INJ SUBCUT PRN (15:46)
[2019-03-18] MEDS ORDERED: POTASSIUM CHLORIDE 10 MEQ CAPSULE.ER PO ONE (19:00)
[2019-03-18] MEDS ORDERED: POTASSI CL 20 MEQ/50 ML RIDER 20 MEQ/50 ML RTUPB IV ONE (19:51)
--- NOTE | 2019-03-18 20:25 | DRAGON STRESS TEST REPORT ---
Intravenous Lexiscan Cardiolite stress test using single photon emmision computerized tomography. Date of procedure: 03/18/2019 Ordering Provider: Dr. Festus Colvin. Patient's status: In Patient. Indication: Preoperative cardiac risk assessment and the patient with history of coronary artery disease, and prior history of MS.. Coronary risk factors: Age, hypertension, dyslipidemia, and family history of coronary artery disease. Resting EKG: Sinus Rhythm. Nonspecific ST-T changes anterior leads. Stress EKG: No changes of ischemia. The patient had no chest pain or discomfort, and there were no arrhythmias seen. Reason for termination: Protocol. Conclusions: Normal EKG and hemodynamic response to IV Lexiscan. Nuclear data: At rest the patient was given 1.90 millicuries of technetium 99m sestamibi injected intravenously. As per protocol rest non gated SPECT images were obtained. Subsequently the patient was given intravenous Lexiscan at a dose of 0.4 mg in 5 mL intravenously, followed by flush with normal saline. Subsequently the stress dose of 32.2 millicuries of technetium 99m sestamibi was injected intravenously. As per protocol stress gated images were obtained. Nuclear interpretation: Review of images showed that all segments of the myocardium had normal perfusion at rest, and normal perfusion post stress with IV Lexiscan. All segments of the myocardium had normal motion, contraction, and thickening by gated study. T. I D. ratio was normal at 1.07. There is no transient ischemic dilatation of the left ventricle. Computer read rest, and stress left ventricular ejection fraction were 56 %, and 56 %, respectively. Conclusion: 1. There is no scintigraphic evidence of Lexiscan induced myocardial ischemia. 2. There is no scintigraphic evidence of myocardial infarction/scar. Recommendations: Aggressive risk factor modification, and treating the underlying co- morbidities. [facility]
[2019-03-19 00:58] LABS: BLOOD UREA NITROGEN 8 mg/dL (7-20); CALCIUM 8.5 mg/dL (8.4-10.2); CARBON DIOXIDE 25 mmol/L (22-30); GLUCOSE 84 mg/dL (75-110)
[2019-03-19 01:03] LABS: CHLORIDE 107 mmol/L (98-107)
[2019-03-19 01:06] LABS: ANION GAP 5 (5-19); POTASSIUM 4.4 mmol/L (3.6-5.0)
[2019-03-19] MEDS ORDERED: TRANEXAMIC ACID INJ/PF 1,000 MG/10 ML SDV IV ONE ×2 (03:29→11:00)
[2019-03-19] MEDS: CEFAZOLIN SODIUM 2 GM in DEXTROSE 5%-WATER 100 ML IV PRN ×3 (04:29→07:46)
[2019-03-19] MEDS ORDERED: RINGERS SOLUTION,LACTATED 1,000 ML IV PRN (05:00)
[2019-03-19] MEDS ORDERED: TRANEXAMIC ACID INJ/PF 1,000 MG/10 ML SDV IV PRN (05:00)
[2019-03-19] MEDS ORDERED: CEFAZOLIN 1 GM/D5W RTU 1 GM/50 ML RTUPB IV PRN (05:00)
[2019-03-19] MEDS: PANTOPRAZOLE SODIUM 40 MG TABLET.DR PO SCH (05:24)
[2019-03-19] MEDS ORDERED: ONDANSETRON HCL INJ/PF 4 MG/2 ML SDV ONE (06:49)
[2019-03-19] MEDS ORDERED: MIDAZOLAM 2 MG/2 ML INJ ONE (06:49)
[2019-03-19] MEDS ORDERED: KETAMINE HCL INJ 500 MG/10 ML VIAL ONE (06:49)
[2019-03-19] MEDS ORDERED: PROPOFOL INJ 200 MG/20 ML VIAL IV ONE (06:50)
[2019-03-19] MEDS ORDERED: MORPHINE SULFATE 10 MG/ML INJ IV PRN (07:47)
[2019-03-19] MEDS ORDERED: DIPHENHYDRAMINE HCL 50 MG/ML VIAL IV PRN (07:47)
[2019-03-19] MEDS ORDERED: PROMETHAZINE HCL INJ 25 MG/1 ML VIAL IV PRN (07:47)
[2019-03-19] MEDS ORDERED: MEPERIDINE HCL/PF INJ 25 MG/1 ML DISP.SYRIN IV PRN (07:47)
[2019-03-19] MEDS ORDERED: FENTANYL CITRATE INJ/PF 100 MCG/2 ML AMPUL IV PRN ×3 (07:47)
--- NOTE | 2019-03-19 08:04 | Operative Report ---
Operative Report DATE OF SURGERY: 03/19/19 PREOPERATIVE DIAGNOSIS: Left intratrochanteric femur fracture OPERATION: Open reduction internal fixation left intratrochanteric femur fracture SURGEON: VINNY METZGER ANESTHESIA: Spinal ESTIMATED BLOOD LOSS: 75 PROCEDURE: Implants used: [place] gamma 3 nail 11 mm x 360 mm x 125 degrees, 90 mm proximal interlock, 45 mm distal interlock With the patient on the fracture table the left lower extremity is manipulated under fluoroscopic guidance to effect a near anatomic reduction. Subsequently the left lower extremity hindquarter prepped and draped in a sterile fashion. The pin is placed percutaneously through the greater trochanter down into the femoral medullary canal and verified by fluoroscopy. A combined reamer was then used to fashion a cortical opening. This is removed and a ball-tipped guide rods placed down the length of the femur. Femoral length is measured to be 360 mm. Subsequently the gamma 3 nail was advanced over the ball-tipped guide hattie to an appropriate depth to permit a proximal interlock. The proximal interlock is placed. Next freehand under fluoroscopic guidance a distal interlock is placed. Fracture reduction and hardware placement are again checked fluoroscopically felt to be adequate. The wounds irrigated. The closed using Vicryl followed by evelia. A sterile compressive dressing was applied and the patient's return to the PACU in satisfactory condition.
[2019-03-19] MEDS: KETOROLAC TROMETHAMINE INJ/PF 30 MG/1 ML SDV IV PRN ×2 (09:53→18:26)
--- NOTE | 2019-03-19 10:47 | RADIOLOGY REPORT (SQ) ---
EXAM DESCRIPTION: HIP IN OPERATING RM; NO CHG FLUORO COMPLETED DATE/TIME: 03/19/2019 10:06 am REASON FOR STUDY: ORIF LEFT HIP ASST WITH FLUORO IN OR COMPARISON: None. FLUOROSCOPY TIME: 0.9 minutes 5 images saved to PACS. TECHNIQUE: Intra-operative images acquired during surgical procedure to evaluate progress. NUMBER OF IMAGES: 5 LIMITATIONS: None. FINDINGS: Images from fluoro document the internal fixation of the hip fracture. A long medullary r od is present. A long cannulated screw is present through the femoral neck. IMPRESSION: ORIF left hip. Refer to operative note for further information. COMMENT: Quality ID [id number]: Final reports for procedures using fluoroscopy that document radiation exp osure indices, or exposure time and number of fluorographic images (if radiation exposure indices are not available) Please consult full operative report of the attending physician for description of the procedure. TECHNICAL DOCUMENTATION: JOB ID: [id number] [employer]- All Rights Reserved Reading location - IP/workstation name: [email or web address]
--- NOTE | 2019-03-19 10:47 | RADIOLOGY REPORT (SQ) ---
EXAM DESCRIPTION: HIP IN OPERATING RM; NO CHG FLUORO COMPLETED DATE/TIME: 03/19/2019 10:06 am REASON FOR STUDY: ORIF LEFT HIP ASST WITH FLUORO IN OR COMPARISON: None. FLUOROSCOPY TIME: 0.9 minutes 5 images saved to PACS. TECHNIQUE: Intra-operative images acquired during surgical procedure to evaluate progress. NUMBER OF IMAGES: 5 LIMITATIONS: None. FINDINGS: Images from fluoro document the internal fixation of the hip fracture. A long medullary r od is present. A long cannulated screw is present through the femoral neck. IMPRESSION: ORIF left hip. Refer to operative note for further information. COMMENT: Quality ID [id number]: Final reports for procedures using fluoroscopy that document radiation exp osure indices, or exposure time and number of fluorographic images (if radiation exposure indices are not available) Please consult full operative report of the attending physician for description of the procedure. TECHNICAL DOCUMENTATION: JOB ID: [id number] [employer]- All Rights Reserved Reading location - IP/workstation name: [email or web address]
[2019-03-19] MEDS: RINGERS SOLUTION,LACTATED 1,000 ML IV PRN ×2 (11:26→21:12)
[2019-03-19] MEDS: DOCUSATE SODIUM 100 MG CAPSULE PO SCH ×2 (11:37→18:23)
[2019-03-19] MEDS: CLONAZEPAM 1 MG TABLET PO SCH ×2 (11:37→18:23)
[2019-03-19] MEDS: DULOXETINE HCL 20 MG CAPSULE.DR PO SCH (11:37)
[2019-03-19] MEDS: METOPROLOL TARTRATE 25 MG TABLET PO SCH ×2 (11:38→21:14)
[2019-03-19] MEDS: LISINOPRIL 5 MG TABLET PO SCH (11:38)
[2019-03-19] MEDS: ENOXAPARIN SODIUM INJ 40 MG/0.4 ML DISP.SYRIN SUBCUT SCH (11:39)
[2019-03-19] MEDS ORDERED: CEFAZOLIN 2 GM/D5W RTU 2 GM/50 ML RTUPB IV SCH (14:00)
[2019-03-19] MEDS: CEFAZOLIN SODIUM 2 GM in DEXTROSE 5%-WATER 100 ML IV SCH ×2 (14:31→21:12)
[2019-03-19] MEDS: FENTANYL CITRATE INJ/PF 100 MCG/2 ML AMPUL IV PRN (14:35)
--- NOTE | 2019-03-19 17:42 | PDOC PROGRESS REPORT ---
Subjective Progress Note for:: 03/19/19 Subjective:: This is a 63 year old female with a history of coronary artery disease ([place] 2016- no stenting or intervention) and pulmonary embolism at 21 years old likely from oral contraceptives who sustained a left subcapital fracture after a mechanical fall. 03/17: She does complain of pain in the left hip. Denies chest pain shortness of breath or chest pain. 03/18: She denies acute complaints. No chest pain or shortness of breath. Left hip pain is well controlled. She is going for ORIF pending her stress test results. 03/19: No acute event overnight. Patient just came back from the OR and had ORIF of the left hip. She denies acute complaints. Pain is well controlled. Reason For Visit: LEFT HIP FRACTURE Physical Exam Vital Signs: Temp Pulse Resp BP Pulse Ox 98.7 F 81 19 141/81 H 99 03/19/19 10:55 03/19/19 10:55 03/19/19 10:55 03/19/19 10:55 03/19/19 10:55 Intake & Output 03/18/19 03/19/19 03/20/19 06:59 06:59 06:59 Intake Total 3628 2490 1650 Output Total 850 3500 550 Balance 2778 -1010 1100 Weight 101 lb 3.075 oz 117 lb 4.575 oz General appearance: PRESENT: no acute distress, well-developed, well-nourished Head exam: PRESENT: atraumatic, normocephalic Eye exam: PRESENT: conjunctiva pink, EOMI, PERRLA. ABSENT: scleral icterus Ear exam: PRESENT: normal external ear exam Mouth exam: PRESENT: moist, tongue midline Neck exam: ABSENT: carotid bruit, JVD, lymphadenopathy, thyromegaly Respiratory exam: PRESENT: clear to auscultation heriberto. ABSENT: rales, rhonchi, wheezes Cardiovascular exam: PRESENT: RRR. ABSENT: diastolic murmur, rubs, systolic murmur Pulses: PRESENT: normal dorsalis pedis pul GI/Abdominal exam: PRESENT: normal bowel sounds, soft. ABSENT: distended, guarding, mass, organolmegaly, rebound, tenderness Rectal exam: PRESENT: deferred Neurological exam: PRESENT: alert, awake, oriented to person, oriented to place, oriented to time, oriented to situation, CN II-XII grossly intact. ABSENT: anita r sensory deficit Results Laboratory Results: 03/17/19 05:25 03/19/19 00:25 03/18/19 03/19/19 15:55 00:25 Sodium 137.2 Potassium 2.8 L* 4.4 D Chloride 107 Carbon Dioxide 25 Anion Gap 5 BUN 8 Creatinine 0.47 L Est GFR ( Amer) > 60 Glucose 84 Calcium 8.5 03/17/19 13:19 Troponin I < 0.012 Impressions: Fluoroscopy 03/19/19 00:00 IMPRESSION: ORIF left hip. Refer to operative note for further information. Hip X-Ray 03/19/19 00:00 IMPRESSION: ORIF left hip. Refer to operative note for further information. Assessment and Plan - Diagnosis (1) Intertrochanteric fracture of left femur Qualifiers: Encounter type: initial encounter Fracture type: closed Fracture alignment: displaced Qualified Code(s): S72.142A - Displaced intertrochanteric fracture of left femur, initial encounter for closed fracture Is this a current diagnosis for this admission?: Yes Plan: 03/19: Patient just came back from the OR and had ORIF of the left hip. (2) Abnormal EKG Is this a current diagnosis for this admission?: Yes Plan: Related to hypokalemia. Stress testing is unremarkable. (3) Hypokalemia Is this a current diagnosis for this admission?: Yes Plan: Resolved and repleted. (4) Hypertension Qualifiers: Hypertension type: essential hypertension Qualified Code(s): I10 - Essential (primary) hypertension Is this a current diagnosis for this admission?: Yes Plan: Continue metoprolol and lisinopril. (5) CAD (coronary artery disease) Is this a current diagnosis for this admission?: Yes Plan: Stable. (6) Chronic back pain Qualifiers: Back pain location: low back pain Back pain laterality: midline Sciatica presence: without sciatica Qualified Code(s): M54.5 - Low back pain; G89.29 - Other chronic pain Is this a current diagnosis for this admission?: Yes Plan: Stable. - Time Time Spent with patient: 25-34 minutes
[2019-03-19] MEDS: TRAMADOL HCL 50 MG TABLET PO PRN (21:10)
[2019-03-20] MEDS: KETOROLAC TROMETHAMINE INJ/PF 30 MG/1 ML SDV IV PRN ×2 (02:39→19:55)
[2019-03-20] MEDS: NICOTINE 21 MG/24 HR PATCH.TD24 TD PRN (02:39)
[2019-03-20 05:28] LABS: HEMATOCRIT 26.5 % (36.0-47.0); MEAN CORPUSCULAR HEMOGLOBIN 31.9 pg (27.0-33.4); MEAN CORPUSCULAR HGB CONC 34.6 g/dL (32.0-36.0); MEAN CORPUSCULAR VOLUME 92 fl (80-97); PLATELET COUNT 170 10^3/uL (150-450); RED BLOOD COUNT 2.87 10^6/uL (3.72-5.28); RED CELL DISTRIBUTION WIDTH 13.1 % (11.5-14.0); WHITE BLOOD COUNT 4.9 10^3/uL (4.0-10.5)
[2019-03-20 05:29] LABS: ANION GAP 6 (5-19); BLOOD UREA NITROGEN 14 mg/dL (7-20); CALCIUM 8.3 mg/dL (8.4-10.2); CARBON DIOXIDE 27 mmol/L (22-30); CHLORIDE 104 mmol/L (98-107); GLUCOSE 91 mg/dL (75-110); POTASSIUM 3.9 mmol/L (3.6-5.0)
[2019-03-20 05:40] LABS: HEMOGLOBIN 9.1 g/dL (12.0-15.5)
[2019-03-20] MEDS: PANTOPRAZOLE SODIUM 40 MG TABLET.DR PO SCH (06:05)
[2019-03-20] MEDS: TRAMADOL HCL 50 MG TABLET PO PRN (08:09)
[2019-03-20] MEDS: RINGERS SOLUTION,LACTATED 1,000 ML IV PRN ×2 (08:10→19:55)
[2019-03-20] MEDS: CLONAZEPAM 1 MG TABLET PO SCH ×2 (11:16→18:11)
[2019-03-20] MEDS: ENOXAPARIN SODIUM INJ 40 MG/0.4 ML DISP.SYRIN SUBCUT SCH (11:17)
[2019-03-20] MEDS: DULOXETINE HCL 20 MG CAPSULE.DR PO SCH (11:17)
[2019-03-20] MEDS: DOCUSATE SODIUM 100 MG CAPSULE PO SCH ×2 (11:17→18:11)
[2019-03-20] MEDS: LISINOPRIL 5 MG TABLET PO SCH (11:19)
[2019-03-20] MEDS: METOPROLOL TARTRATE 25 MG TABLET PO SCH ×2 (11:19→21:21)
--- NOTE | 2019-03-20 13:52 | PDOC PROGRESS REPORT ---
Subjective Progress Note for:: 03/20/19 Subjective:: Patient lying in bed comfortably. States her pain has notably improved since operative intervention. She was concerned she is unable to walk again but has ambulated today with physical therapy and has been able to get out of bed and to the bedside commode with assistance. Denies fever chills or sweats. Reason For Visit: LEFT HIP FRACTURE Physical Exam Vital Signs: Temp Pulse Resp BP Pulse Ox 99.4 F 86 16 98/51 L 90 L 03/20/19 11:18 03/20/19 11:18 03/20/19 11:18 03/20/19 11:18 03/20/19 11:18 Intake & Output 03/19/19 03/20/19 03/21/19 06:59 06:59 06:59 Intake Total 2490 4116 686 Output Total 3500 910 Balance -1010 3206 686 Weight 53.2 kg 54.3 kg Musculoskeletal exam: PRESENT: other - Left hip: Dressing clean/dry/intact no erythema or drainage. Moderate thigh swelling without change, intact pl antarflexion/dorsiflexion. No sensory deficits. No calf tenderness. Results Laboratory Results: 03/20/19 03:55 03/20/19 03:55 03/20/19 03/20/19 03:55 03:55 WBC 4.9 RBC 2.87 L Hgb 9.1 L D Hct 26.5 L MCV 92 MCH 31.9 MCHC 34.6 RDW 13.1 Plt Count 170 Sodium 136.9 L Potassium 3.9 Chloride 104 Carbon Dioxide 27 Anion Gap 6 BUN 14 Creatinine 0.67 Est GFR ( Amer) > 60 Glucose 91 Calcium 8.3 L 03/17/19 13:19 Troponin I < 0.012 Impressions: Fluoroscopy 03/19/19 00:00 IMPRESSION: ORIF left hip. Refer to operative note for further information. Hip X-Ray 03/19/19 00:00 IMPRESSION: ORIF left hip. Refer to operative note for further information. Assessment & Plan - Diagnosis (1) Intertrochanteric fracture of left femur Qualifiers: Encounter type: initial encounter Fracture type: closed Fracture alignment: displaced Qualified Code(s): S72.142A - Displaced intertrochanteric fracture of left femur, initial encounter for closed fracture Is this a current diagnosis for this admission?: Yes Plan: Postop day #1 status post right hip cephalo-medullary nail 1. Physical therapy weightbearing as tolerated. Patient progressed fairly well today walking 30 feet. 2. Lovenox DVT prophylaxis 3. Pain control 4. Discharge planning patient likely require [facility] facility. Once bed available and accepted by insurance patient orthopedically stable for discharge
--- NOTE | 2019-03-20 15:47 | PDOC PROGRESS REPORT ---
Subjective Progress Note for:: 03/20/19 Subjective:: This is a 63 year old female with a history of coronary artery disease ([place] 2016- no stenting or intervention) and pulmonary embolism at 21 years old likely from oral contraceptives who sustained a left subcapital fracture after a mechanical fall. 03/17: She does complain of pain in the left hip. Denies chest pain shortness of breath or chest pain. 03/18: She denies acute complaints. No chest pain or shortness of breath. Left hip pain is well controlled. She is going for ORIF pending her stress test results. 03/19: Patient just came back from the OR and had ORIF of the left hip. She denies acute complaints. Pain is well controlled. 03/20: No acute event overnight. She denies acute complaints. Pain is well controlled. She did better with physical therapy today as yesterday she required 2 person assist in she only required 1 person assist today. Discharge planning working on acute rehab placement. Reason For Visit: LEFT HIP FRACTURE Physical Exam Vital Signs: Temp Pulse Resp BP Pulse Ox 99.4 F 86 16 98/51 L 90 L 03/20/19 11:18 03/20/19 11:18 03/20/19 11:18 03/20/19 11:18 03/20/19 11:18 Intake & Output 03/19/19 03/20/19 03/21/19 06:59 06:59 06:59 Intake Total 2490 4116 686 Output Total 3500 910 Balance -1010 3206 686 Weight 117 lb 4.575 oz 119 lb 11.376 oz General appearance: PRESENT: no acute distress, well-developed, well-nourished Head exam: PRESENT: atraumatic, normocephalic Eye exam: PRESENT: conjunctiva pink, EOMI, PERRLA. ABSENT: scleral icterus Ear exam: PRESENT: normal external ear exam Mouth exam: PRESENT: moist, tongue midline Neck exam: ABSENT: carotid bruit, JVD, lymphadenopathy, thyromegaly Respiratory exam: PRESENT: clear to auscultation heriberto. ABSENT: rales, rhonchi, wheezes Cardiovascular exam: PRESENT: RRR. ABSENT: diastolic murmur, rubs, systolic murmur Pulses: PRESENT: normal dorsalis pedis pul GI/Abdominal exam: PRESENT: normal bowel sounds, soft. ABSENT: distended, guarding, mass, organolmegaly, rebound, tenderness Rectal exam: PRESENT: deferred Extremities exam: PRESENT: full ROM. ABSENT: calf tenderness, clubbing, pedal edema Neurological exam: PRESENT: alert, awake, oriented to person, oriented to place, oriented to time, oriented to situation, CN II-XII grossly intact. ABSENT: motor sensory deficit Results Laboratory Results: 03/20/19 03:55 03/20/19 03:55 03/20/19 03/20/19 03:55 03:55 WBC 4.9 RBC 2.87 L Hgb 9.1 L D Hct 26.5 L MCV 92 MCH 31.9 MCHC 34.6 RDW 13.1 Plt Count 170 Sodium 136.9 L Potassium 3.9 Chloride 104 Carbon Dioxide 27 Anion Gap 6 BUN 14 Creatinine 0.67 Est GFR ( Amer) > 60 Glucose 91 Calcium 8.3 L 03/17/19 13:19 Troponin I < 0.012 Impressions: Fluoroscopy 03/19/19 00:00 IMPRESSION: ORIF left hip. Refer to operative note for further information. Hip X-Ray 03/19/19 00:00 IMPRESSION: ORIF left hip. Refer to operative note for further information. Assessment and Plan - Diagnosis (1) Intertrochanteric fracture of left femur Qualifiers: Encounter type: initial encounter Fracture type: closed Fracture alignment: displaced Qualified Code(s): S72.142A - Displaced intertrochanteric fracture of left femur, initial encounter for closed fracture Is this a current diagnosis for this admission?: Yes Plan: 03/19: Patient just came back from the OR and had ORIF of the left hip. 03/20: She did better with physical therapy today as yesterday she required 2 person assist in she only required 1 person assist today. Discharge planning working on acute rehab placement. (2) Abnormal EKG Is this a current diagnosis for this admission?: Yes Plan: Related to hypokalemia. Stress testing is unremarkable. (3) Hypokalemia Is this a current diagnosis for this admission?: Yes Plan: Resolved and repleted. (4) Hypertension Qualifiers: Hypertension type: essential hypertension Qualified Code(s): I10 - Essential (primary) hypertension Is this a current diagnosis for this admission?: Yes Plan: Continue metoprolol and lisinopril. (5) CAD (coronary artery disease) Is this a current diagnosis for this admission?: Yes Plan: Stable. (6) Chronic back pain Qualifiers: Back pain location: low back pain Back pain laterality: midline Sciatica presence: without sciatica Qualified Code(s): M54.5 - Low back pain; G89.29 - Other chronic pain Is this a current diagnosis for this admission?: Yes Plan: Stable. - Time Time Spent with patient: 25-34 minutes
--- NOTE | 2019-03-20 23:02 | EKG REPORT ---
SEVERITY:- BORDERLINE ECG - SINUS RHYTHM BORDERLINE ST-T CHANGES ANTERIOR LEADS : Confirmed by: Rica Dexter MD 20-Mar-2019 23:01:58
[2019-03-21] MEDS: TEMAZEPAM 15 MG CAPSULE PO PRN ×2 (02:55→23:53)
[2019-03-21] MEDS: KETOROLAC TROMETHAMINE INJ/PF 30 MG/1 ML SDV IV PRN ×2 (06:19→23:59)
[2019-03-21] MEDS: RINGERS SOLUTION,LACTATED 1,000 ML IV PRN (06:20)
[2019-03-21] MEDS: PANTOPRAZOLE SODIUM 40 MG TABLET.DR PO SCH (06:20)
[2019-03-21] MEDS: TRAMADOL HCL 50 MG TABLET PO PRN ×2 (06:23→17:36)
[2019-03-21] MEDS: IBUPROFEN 800 MG TABLET PO PRN (08:55)
[2019-03-21] MEDS: DOCUSATE SODIUM 100 MG CAPSULE PO SCH ×2 (09:26→17:31)
[2019-03-21] MEDS: METOPROLOL TARTRATE 25 MG TABLET PO SCH ×2 (09:30→22:07)
[2019-03-21] MEDS: DULOXETINE HCL 20 MG CAPSULE.DR PO SCH (09:30)
[2019-03-21] MEDS: LISINOPRIL 5 MG TABLET PO SCH (09:30)
[2019-03-21] MEDS: CLONAZEPAM 1 MG TABLET PO SCH ×2 (09:32→17:35)
[2019-03-21] MEDS: ENOXAPARIN SODIUM INJ 40 MG/0.4 ML DISP.SYRIN SUBCUT SCH (09:32)
[2019-03-21] MEDS: HYDROCODONE/ACETAMINOPHEN 7.5-325 MG TABLET PO PRN ×2 (12:21→22:08)
--- NOTE | 2019-03-21 14:09 | PDOC PROGRESS REPORT ---
Subjective Progress Note for:: 03/21/19 Subjective:: This is a 63 year old female with a history of coronary artery disease ([place] 2016- no stenting or intervention) and pulmonary embolism at 21 years old likely from oral contraceptives who sustained a left subcapital fracture after a mechanical fall. 03/17: She does complain of pain in the left hip. Denies chest pain shortness of breath or chest pain. 03/18: She denies acute complaints. No chest pain or shortness of breath. Left hip pain is well controlled. She is going for ORIF pending her stress test results. 03/19: Patient just came back from the OR and had ORIF of the left hip. She denies acute complaints. Pain is well controlled. 03/20: She denies acute complaints. Pain is well controlled. She did better with physical therapy today as yesterday she required 2 person assist in she only required 1 person assist today. Discharge planning working on acute rehab placement. 03/21: No acute event overnight. She complains of pain in the left hip this morning. Encouraged to ambulate with staff assistance and work with physical therapy. Reason For Visit: LEFT HIP FRACTURE Physical Exam Vital Signs: Temp Pulse Resp BP Pulse Ox 98.7 F 58 L 18 136/78 H 94 03/21/19 13:00 03/21/19 13:00 03/21/19 13:00 03/21/19 13:00 03/21/19 13:00 Intake & Output 03/20/19 03/21/19 03/22/19 06:59 06:59 06:59 Intake Total 4116 3306 360 Output Total 910 Balance 3206 3306 360 Weight 119 lb 11.376 oz 95 lb 3.835 oz General appearance: PRESENT: no acute distress, well-developed, well-nourished Head exam: PRESENT: atraumatic, normocephalic Eye exam: PRESENT: conjunctiva pink, EOMI, PERRLA. ABSENT: scleral icterus Ear exam: PRESENT: normal external ear exam Mouth exam: PRESENT: moist, tongue midline Neck exam: ABSENT: carotid bruit, JVD, lymphadenopathy, thyromegaly Respiratory exam: PRESENT: clear to auscultation heriberto. ABSENT: rales, rhonchi, wheezes Cardiovascular exam: PRESENT: RRR. ABSENT: diastolic murmur, rubs, systolic murmur Pulses: PRESENT: normal dorsalis pedis pul GI/Abdominal exam: PRESENT: normal bowel sounds, soft. ABSENT: distended, guarding, mass, organolmegaly, rebound, tenderness Rectal exam: PRESENT: deferred Extremities exam: PRESENT: full ROM. ABSENT: calf tenderness, clubbing, pedal edema Neurological exam: PRESENT: alert, awake, oriented to person, oriented to place, oriented to time, oriented to situation, CN II-XII grossly intact. ABSENT: motor sensory deficit Results Laboratory Results: 03/20/19 03:55 03/20/19 03:55 03/17/19 13: Troponin I < 0.012 Impressions: Fluoroscopy 03/19/19 00:00 IMPRESSION: ORIF left hip. Refer to operative note for further information. Hip X-Ray 03/19/19 00:00 IMPRESSION: ORIF left hip. Refer to operative note for further information. Assessment and Plan - Diagnosis (1) Intertrochanteric fracture of left femur Qualifiers: Encounter type: initial encounter Fracture type: closed Fracture alignment: displaced Qualified Code(s): S72.142A - Displaced intertrochanteric fracture of left femur, initial encounter for closed fracture Is this a current diagnosis for this admission?: Yes Plan: 03/19: Patient just came back from the OR and had ORIF of the left hip. 03/20: She did better with physical therapy today as yesterday she required 2 person assist in she only required 1 person assist today. Discharge planning working on acute rehab placement. 03/21: Continue daily attempts to ambulate and physical therapy. (2) Abnormal EKG Is this a current diagnosis for this admission?: Yes Plan: Related to hypokalemia. Stress testing is unremarkable. (3) Hypokalemia Is this a current diagnosis for this admission?: Yes Plan: Resolved and repleted. (4) Hypertension Qualifiers: Hypertension type: essential hypertension Qualified Code(s): I10 - Essential (primary) hypertension Is this a current diagnosis for this admission?: Yes Plan: Continue metoprolol and lisinopril. (5) CAD (coronary artery disease) Is this a current diagnosis for this admission?: Yes Plan: Stable. (6) Chronic back pain Qualifiers: Back pain location: low back pain Back pain laterality: midline Sciatica presence: without sciatica Qualified Code(s): M54.5 - Low back pain; G89.29 - Other chronic pain Is this a current diagnosis for this admission?: Yes Plan: Stable. - Time Time Spent with patient: 15-24 minutes
[2019-03-22] MEDS: TRAMADOL HCL 50 MG TABLET PO PRN ×2 (03:22→18:11)
[2019-03-22] MEDS: RINGERS SOLUTION,LACTATED 1,000 ML IV PRN ×2 (03:22→21:28)
[2019-03-22] MEDS: PANTOPRAZOLE SODIUM 40 MG TABLET.DR PO SCH (05:44)
[2019-03-22] MEDS: KETOROLAC TROMETHAMINE INJ/PF 30 MG/1 ML SDV IV PRN (06:31)
[2019-03-22] MEDS: DOCUSATE SODIUM 100 MG CAPSULE PO SCH ×2 (09:07→18:08)
[2019-03-22] MEDS: CLONAZEPAM 1 MG TABLET PO SCH ×2 (09:25→18:11)
[2019-03-22] MEDS: METOPROLOL TARTRATE 25 MG TABLET PO SCH ×2 (09:25→21:26)
[2019-03-22] MEDS: LISINOPRIL 5 MG TABLET PO SCH (09:25)
[2019-03-22] MEDS: DULOXETINE HCL 20 MG CAPSULE.DR PO SCH (09:26)
[2019-03-22] MEDS: ENOXAPARIN SODIUM INJ 40 MG/0.4 ML DISP.SYRIN SUBCUT SCH (09:26)
[2019-03-22] MEDS: NICOTINE 21 MG/24 HR PATCH.TD24 TD PRN (09:31)
[2019-03-22] MEDS: HYDROCODONE/ACETAMINOPHEN 7.5-325 MG TABLET PO PRN ×2 (13:16→20:18)
--- NOTE | 2019-03-22 15:47 | PDOC PROGRESS REPORT ---
Subjective Progress Note for:: 03/22/19 Subjective:: This is a 63 year old female with a history of coronary artery disease ([place] 2016- no stenting or intervention) and pulmonary embolism at 21 years old likely from oral contraceptives who sustained a left subcapital fracture after a mechanical fall. 03/17: She does complain of pain in the left hip. Denies chest pain shortness of breath or chest pain. 03/18: She denies acute complaints. No chest pain or shortness of breath. Left hip pain is well controlled. She is going for ORIF pending her stress test results. 03/19: Patient just came back from the OR and had ORIF of the left hip. She denies acute complaints. Pain is well controlled. 03/20: She denies acute complaints. Pain is well controlled. She did better with physical therapy today as yesterday she required 2 person assist in she only required 1 person assist today. Discharge planning working on acute rehab placement. 03/21: She complains of pain in the left hip this morning. Encouraged to a mbulate with staff assistance and work with physical therapy. 03/22: No acute event overnight. Denies acute complaints. She did significantly better today with ambulation with PT and nursing staff. May be able to get discharged home with home PT tomorrow instead of acute rehab. Reason For Visit: LEFT HIP FRACTURE Physical Exam Vital Signs: Temp Pulse Resp BP Pulse Ox 98.0 F 57 L 21 H 123/51 L 95 03/22/19 13:00 03/22/19 14:00 03/22/19 13:00 03/22/19 13:00 03/22/19 13:00 Intake & Output 03/21/19 03/22/19 03/23/19 06:59 06:59 06:59 Intake Total 3306 1840 Balance 3306 1840 Weight 95 lb 3.835 oz 102 lb 4.712 oz General appearance: PRESENT: no acute distress, well-developed, well-nourished Head exam: PRESENT: atraumatic, normocephalic Eye exam: PRESENT: conjunctiva pink, EOMI, PERRLA. ABSENT: scleral icterus Ear exam: PRESENT: normal external ear exam Mouth exam: PRESENT: moist, tongue midline Neck exam: ABSENT: carotid bruit, JVD, lymphadenopathy, thyromegaly Respiratory exam: PRESENT: clear to auscultation heriberto. ABSENT: rales, rhonchi, wheezes Cardiovascular exam: PRESENT: RRR. ABSENT: diastolic murmur, rubs, systolic murmur Pulses: PRESENT: normal dorsalis pedis pul GI/Abdominal exam: PRESENT: normal bowel sounds, soft. ABSENT: distended, guarding, mass, organolmegaly, rebound, tenderness Rectal exam: PRESENT: deferred Extremities exam: PRESENT: full ROM. ABSENT: calf tenderness, clubbing, pedal edema Neurological exam: PRESENT: alert, awake, oriented to person, oriented to place, oriented to time, oriented to situation, CN II-XII grossly intact. ABSENT: motor sensory deficit Results Laboratory Results: 03/20/19 03:55 03/20/19 03:55 03/17/19 13: Troponin I < 0.012 Impressions: Fluoroscopy 03/19/19 00:00 IMPRESSION: ORIF left hip. Refer to operative note for further information. Hip X-Ray 03/19/19 00:00 IMPRESSION: ORIF left hip. Refer to operative note for further information. Assessment and Plan - Diagnosis (1) Intertrochanteric fracture of left femur Qualifiers: Encounter type: initial encounter Fracture type: closed Fracture alignment: displaced Qualified Code(s): S72.142A - Displaced intertrochanteric fracture of left femur, initial encounter for closed fracture Is this a current diagnosis for this admission?: Yes Plan: 03/19: Patient just came back from the OR and had ORIF of the left hip. 03/20: She did better with physical therapy today as yesterday she required 2 person assist in she only required 1 person assist today. Discharge planning working on acute rehab placement. 03/22: Continue daily attempts to ambulate and physical therapy. (2) Abnormal EKG Is this a current diagnosis for this admission?: Yes Plan: Related to hypokalemia. Stress testing is unremarkable. (3) Hypokalemia Is this a current diagnosis for this admission?: Yes Plan: Resolved and repleted. (4) Hypertension Qualifiers: Hypertension type: essential hypertension Qualified Code(s): I10 - Essential (primary) hypertension Is this a current diagnosis for this admission?: Yes Plan: Continue metoprolol and lisinopril. (5) CAD (coronary artery disease) Is this a current diagnosis for this admission?: Yes Plan: Stable. (6) Chronic back pain Qualifiers: Back pain location: low back pain Back pain laterality: midline Sciatica presence: without sciatica Qualified Code(s): M54.5 - Low back pain; G89.29 - Other chronic pain Is this a current diagnosis for this admission?: Yes Plan: Stable. - Time Time Spent with patient: 15-24 minutes
[2019-03-22] MEDS: TEMAZEPAM 15 MG CAPSULE PO PRN (21:26)
[2019-03-23] MEDS: PANTOPRAZOLE SODIUM 40 MG TABLET.DR PO SCH (05:19)
[2019-03-23] MEDS: HYDROCODONE/ACETAMINOPHEN 7.5-325 MG TABLET PO PRN (09:02)
[2019-03-23] MEDS: ENOXAPARIN SODIUM INJ 40 MG/0.4 ML DISP.SYRIN SUBCUT SCH (09:03)
[2019-03-23] MEDS: METOPROLOL TARTRATE 25 MG TABLET PO SCH (09:03)
[2019-03-23] MEDS: CLONAZEPAM 1 MG TABLET PO SCH (09:03)
[2019-03-23] MEDS: LISINOPRIL 5 MG TABLET PO SCH (09:03)
[2019-03-23] MEDS: DOCUSATE SODIUM 100 MG CAPSULE PO SCH (09:04)
[2019-03-23] MEDS: DULOXETINE HCL 20 MG CAPSULE.DR PO SCH (09:04)
[2019-03-23 10:48] LABS: ABSOLUTE EOSINOPHILS # (AUTO) 0.2 10^3/uL (0.0-0.6); ABSOLUTE LYMPHOCYTES (AUTO) 0.8 10^3/uL (0.5-4.7); ABSOLUTE MONOCYTES (AUTO) 0.3 10^3/uL (0.1-1.4); ABSOLUTE NEUT (AUTO) 3.7 10^3/uL (1.7-8.2); BASOPHILS % (AUTO) 0.6 % (0-2); EOSINOPHILS % (AUTO) 3.9 % (0-6); HEMOGLOBIN 9.4 g/dL (12.0-15.5); LYMPHOCYTES % (AUTO) 15.9 % (13-45); MEAN CORPUSCULAR HGB CONC 34.9 g/dL (32.0-36.0); MEAN CORPUSCULAR VOLUME 92 fl (80-97); MONOCYTES % (AUTO) 6.5 % (3-13); PLATELET COUNT 215 10^3/uL (150-450); RED BLOOD COUNT 2.95 10^6/uL (3.72-5.28); RED CELL DISTRIBUTION WIDTH 13.5 % (11.5-14.0); SEGMENTED NEUTROPHILS % (AUTO) 73.1 % (42-78); TOTAL CELLS COUNTED % (AUTO) 100 %
[2019-03-23 11:06] LABS: ANION GAP 8 (5-19); BLOOD UREA NITROGEN 8 mg/dL (7-20); CARBON DIOXIDE 24 mmol/L (22-30); CHLORIDE 106 mmol/L (98-107); GLUCOSE 86 mg/dL (75-110); POTASSIUM 3.7 mmol/L (3.6-5.0)
[2019-03-23 12:40] VITALS: BP 124/79
[2019-03-23] MEDS ORDERED: ONDANSETRON HCL INJ/PF 4 MG/2 ML SDV IV PRN (14:30)
--- NOTE | 2019-03-23 16:28 | PDOC DISCHARGE SUMMARY ---
General - Admit/Disc Date/PCP Admission Date/Primary Care Provider: 03/16/19 19:28 BRUNILDA CHAMPION PA-C Discharge Date: 03/23/19 - Discharge Diagnosis (1) Intertrochanteric fracture of left femur Is this a current diagnosis for this admission?: Yes (2) Abnormal EKG Is this a current diagnosis for this admission?: Yes (3) Hypokalemia Is this a current diagnosis for this admission?: Yes (4) Hypertension Is this a current diagnosis for this admission?: Yes (5) CAD (coronary artery disease) Is this a current diagnosis for this admission?: Yes (6) Chronic back pain Is this a current diagnosis for this admission?: Yes - Additional Information Resuscitation Status: Full Code Discharge Diet: As Tolerated Discharge Activity: Activity As Tolerated, Balance Activity w/Rest Prescriptions: Aspirin [Adult Low Dose Aspirin EC] 81 mg PO DAILY #30 tablet. Hydrocodone/Acetaminophen [[place] 7.5-325 mg Tablet] 1 tab PO Q6HP PRN #12 tablet PRN Reason: For Pain Lisinopril [Prinivil 5 mg Tablet] 2.5 mg PO DAILY #30 tablet Home Medications: Clonazepam [Klonopin 1 mg Tablet] 1 mg PO BID 03/16/19 Duloxetine HCl [Cymbalta 20 mg Capsule.] 20 mg PO DAILY 03/16/19 Ibuprofen [Motrin 800 mg Tablet] 800 mg PO Q8HP PRN 03/16/19 Metoprolol Tartrate [Lopressor 25 mg Tablet] 25 mg PO Q12 03/16/19 Tramadol HCl [Ultram 50 mg Tablet] 50 mg PO Q8HP PRN 03/16/19 Aspirin [Adult Low Dose Aspirin EC] 81 mg PO DAILY #30 tablet. 03/23/19 Hydrocodone/Acetaminophen [[place] 7.5-325 mg Tablet] 1 tab PO Q6HP PRN #12 tablet 03/23/19 Lisinopril [Prinivil 5 mg Tablet] 2.5 mg PO DAILY #30 tablet 03/23/19 History of Present Illness History of Present Illness: Admitting hospitalist's H&P: BEKAH IBANEZ is a 63 year old female with a history of coronary artery disease (NH 2015) and pulmonary embolism at 21 years old likely from oral contraceptives. She states that she was cleaning up after the dog in the bathroom and slipped on the floor. She felt and had sharp pain in her left hip. She went to stay and had increased pain and could not support herself and fell back to the floor. Patient sustained a left subcapital fracture. She has a history of myocardial infarction and orthopedic surgery referred her to the hospitalist for admission and evaluation. Hospital Course Hospital Course: This is a 63 year old female with a history of coronary artery disease (NH 2016- no stenting or intervention) and pulmonary embolism at 21 years old likely from oral contraceptives who sustained a left subcapital fracture after a mechanical fall. She had ORIF of the left hip on 03/19/19 after a negative stress test. She did significantly better with ambulation with PT and nursing staff. She was re-evaluated by PT and was deemed safe to be discharged home with home PT and home health. She was also sent on aspirin per ortho recommendations for post orthopedic surgery VTE prophylaxis. Physical Exam Vital Signs: Temp Pulse Resp BP Pulse Ox 98.5 F 60 18 124/79 99 03/23/19 11:38 03/23/19 11:38 03/23/19 11:38 03/23/19 11:38 03/23/19 11:38 Intake & Output 03/22/19 03/23/19 03/24/19 06:59 06:59 06:59 Intake Total 1840 2760 380 Balance 1840 2760 380 Weight 102 lb 4.712 oz 118 lb 6.212 oz General appearance: PRESENT: no acute distress, well-developed, well-nourished Head exam: PRESENT: atraumatic, normocephalic Eye exam: PRESENT: conjunctiva pink, EOMI, PERRLA. ABSENT: scleral icterus Ear exam: PRESENT: normal external ear exam Mouth exam: PRESENT: moist, tongue midline Neck exam: ABSENT: carotid bruit, JVD, lymphadenopathy, thyromegaly Respiratory exam: PRESENT: clear to auscultation heriberto. ABSENT: rales, rhonchi, wheezes Cardiovascular exam: PRESENT: RRR. ABSENT: diastolic murmur, rubs, systolic murmur Pulses: PRESENT: normal dorsalis pedis pul GI/Abdominal exam: PRESENT: normal bowel sounds, soft. ABSENT: distended, guarding, mass, organolmegaly, rebound, tenderness Rectal exam: PRESENT: deferred Neurological exam: PRESENT: alert, awake, oriented to person, oriented to place, oriented to time, oriented to situation, CN II-XII grossly intact. ABSENT: m otor sensory deficit Results Laboratory Results: 03/23/19 10:22 03/23/19 10:22 03/23/19 03/23/19 10: 10:22 WBC 5.0 RBC 2.95 L Hgb 9.4 L Hct 27.0 L MCV 92 MCH 32.0 MCHC 34.9 RDW 13.5 Plt Count 215 Seg Neutrophils % 73.1 Sodium 138.0 Potassium 3.7 Chloride 106 Carbon Dioxide 24 Anion Gap 8 BUN 8 Creatinine 0.48 L Est GFR ( Amer) > 60 Glucose 86 Calcium 9.0 03/17/19 13:19 Troponin I < 0.012 Impressions: Fluoroscopy 03/19/19 00:00 IMPRESSION: ORIF left hip. Refer to operative note for further information. Hip X-Ray 03/19/19 00:00 IMPRESSION: ORIF left hip. Refer to operative note for further information. Qualifiers - * PATIENT BEING DISCHARGED WITH ANY OF THE FOLLOWING DIAGNOSIS: No Acute Heart Failure - Is this a Heart Failure Patient?: No
== END 2019-03-23 14:41 | disposition home health service (06) | DRG 482 ==
LOC: ER 14:53 → EH 19:28 → 4N 21:59
PROVIDERS: ADMIT Hospitalist; ATTEND Hospitalist
PROC: 0QS704Z Reposition Left Upper Femur with Internal Fixation Device, Open Approach (ICD-10-PCS; principal; 2019-03-19 07:30)
DX: S72.142A Displaced intertrochanteric fracture of left femur, initial encounter for closed fracture (principal); E87.6 Hypokalemia; E78.5 Hyperlipidemia, unspecified; I10 Essential (primary) hypertension; J44.9 Chronic obstructive pulmonary disease, unspecified; M54.5 Low back pain; R94.31 Abnormal electrocardiogram [ECG] [EKG]; I25.2 Old myocardial infarction; F17.210 Nicotine dependence, cigarettes, uncomplicated; W01.0XXA Fall on same level from slipping, tripping and stumbling without subsequent striking against object, initial encounter; Y93.89 Activity, other specified; Y92.098 Other place in other non-institutional residence as the place of occurrence of the external cause; Z91.81 History of falling; Z60.2 Problems related to living alone; Z86.711 Personal history of pulmonary embolism
CPT/HCPCS: 01230; 36415; 78452; 80048; 80053; 81001; 83735; 84132; 84443; 84484; 85025; 85027; 85610; 86850; 86900; 86901; 93005; 93010; 93017; 96365; 96375; 99284; A9500; C1713; C1769; J0690; J1170; J1650; J1885; J2250; J2405; J2704; J2785; J3010; J3480; J3490; J7042; J7060; J7120; Q9969

== ENCOUNTER → 2019-12-09 | Outpatient (CLI) | payer MEDICARE, MEDICAID ==
--- NOTE | 2019-12-09 16:56 | RADIOLOGY REPORT (SQ) ---
EXAM DESCRIPTION: MRI LUMBAR SPINE WITHOUT IMAGES COMPLETED DATE/TIME: 12/09/2019 4:06 pm REASON FOR STUDY: M48.56XA COLLAPSED VERTEBRA, NEC, LUMBAR REGION, INIT M48.56XA COLLAPSED VERTEBRA , NEC, LUMBAR REGION, INIT COMPARISON: None. TECHNIQUE: Sagittal and Axial imaging includes T1, T2, STIR and gradient echo sequences. Coronal T2/ HASTE imaging. LIMITATIONS: None. FINDINGS: VISUALIZED UPPER ABDOMEN: Limited evaluation. No acute or suspicious findings suggested. Mild dilation of the right common iliac artery measuring up to 1.7 cm. Scattered aortoiliac atheros clerosis with mild ectasia measuring up to 2.4 cm. SEGMENTATION: No transitional anatomy. The lowest well-developed disc space is labeled L5-S1. ALIGNMENT: Anatomic. VERTEBRAE: Intact. BONE MARROW: Modic endplate changes at L4-5. Minimal edema at the endplates. No marrow replacing pr ocess evident. DISC SIGNAL: Multilevel disc desiccation and height loss greatest at L3-4, L4-5 and L5-S1. POSTERIOR ELEMENTS: Generally intact. No pars defect evident. HARDWARE: None in the spine. CORD AND CONUS: Normal in size and signal intensity. Conus medullaris terminates at L1. SOFT TISSUES: As above. L1-L2: Small circumferential disc bulge without significant spinal canal stenosis or neural foraminal narrowing. L2-L3: Small circumferential disc bulge without significant spinal canal stenosis. Mild left neural foraminal narrowing secondary to disc disease. L3-L4: Significant disc desiccation and disc height loss with small circumferential disc bulge. Ther e is lateral recess narrowing bilaterally with contact of the traversing nerve roots. No high-grade spinal canal stenosis. There is sioy-lo-oxtbsvea left and moderate to severe right neural foraminal narrowing secondary to disc and facet hypertrophy. L4-L5: Significant disc desiccation and height loss. Posterior disc contacts the traversing nerve ro ots bilaterally. There is mild left and severe right neural foraminal narrowing secondary to disc an d facet disease. L5-S1: Significant disc desiccation height loss with posterior disc bulge. No high-grade spinal alicia l stenosis. There is moderate right and moderate to severe left neural foraminal narrowing secondary to disc and facet disease. LOWER THORACIC: Incompletely imaged. No stenosis seen. SACRUM: Visualized upper sacrum intact. OTHER: No other significant findings. IMPRESSION: 1. No evidence of acute bony abnormality of the lumbar spine. Minimal degenerative end plate edema at L4-5. 2. Multilevel degenerative disc disease with disc height loss greatest at L3 through S1. No high-gr mimi spinal canal stenosis. 3. Multilevel neural foraminal narrowing with moderate to severe neural foraminal narrowing at L3-4, L4-5 and L5-S1 on the right secondary to disc and facet disease. Additional level specific findings as above. TECHNICAL DOCUMENTATION: JOB ID: [id number] 2010 [employer]- All Rights Reserved Reading location - IP/workstation name: [email or web address]
== END ==
LOC: RAD 15:17
PROVIDERS: ATTEND Family Medicine
DX: M48.56XA Collapsed vertebra, not elsewhere classified, lumbar region, initial encounter for fracture (principal); M51.37 Other intervertebral disc degeneration, lumbosacral region
CPT/HCPCS: 72148

== ENCOUNTER 2020-07-05 08:43 | Day surgery (SDC) | payer MEDICARE, MEDICAID ==
[2020-07-05] MEDS ORDERED: LIDOCAINE 2% INJ (20 MG/ML) 20 ML MDV ONE (09:02)
[2020-07-05] MEDS ORDERED: LIDOCAINE 1%/EPINEPHRINE INJ 20 ML VIAL ONE (09:02)
== END 2020-07-05 11:00 | disposition home or self-care (01) ==
LOC: RAD 08:43
PROVIDERS: ATTEND Surgery
DX: Z53.8 Procedure and treatment not carried out for other reasons (principal); N64.89 Other specified disorders of breast; R92.1 Mammographic calcification found on diagnostic imaging of breast
CPT/HCPCS: J3490 ×2

== ENCOUNTER → 2020-07-18 | Outpatient (CLI) | payer MEDICARE, MEDICAID ==
--- NOTE | 2020-07-19 14:49 | RADIOLOGY REPORT (SQ) ---
EXAM DESCRIPTION: MRI BREAST BILATERAL W/WO IMAGES COMPLETED DATE/TIME: 07/18/2020 10:59 am REASON FOR STUDY: (R92.8)OTH ABN AND INCONCLUSIVE FINDINGS ON DX IMAGING OF BREAST R92.8 OTH ABN AN D INCONCLUSIVE FINDINGS ON DX IMAGING OF JUDY COMPARISON: None. PATHOLOGIC CORRELATION: Mammograms 05/24/2020. CONTRAST TYPE AND DOSE: 20 mL Prohance. RENAL FUNCTION: GFR > 60. TECHNIQUE: MR imaging performed with a dedicated breast coil. Pre contrast T1 and T2 weighted images . Pre contrast and post contrast enhanced T1 weighted images with fat saturation. Subtraction images, 3D thick and thin MIPS, and kinetic analysis performed on an independent workstat ion. ([employer] workstation) Magnet strength: 1.5 T LIMITATIONS: None. FINDINGS: BREAST DENSITY: b. There are scattered areas of fibroglandular density. BACKGROUND PARENCHYMAL ENHANCEMENT:Minimal. RIGHT BREAST: No enhancing or suspicious masses. No clumped, regional/segmental ductal enhancement. CHEST WALL: Normal tissue planes. No abnormal internal mammary nodes. AXILLA: Normal axillary and retro-pectoral nodes. LEFT BREAST:Enhancing spiculated mass index lesion 2 o'clock position middle 3rd. 2 additional smal l areas of abnormal enhancement more anteriorly at 12 o'clock. There is ductal enhancement extending from these lesions to the nipple. CHEST WALL: Normal tissue planes. No abnormal internal mammary nodes. AXILLA: Normal axillary and retro-pectoral nodes. OTHER:No identified liver, bone, or lung lesions. No other significant incidental findings. IMPRESSION: 1. There are 2 smaller enhancing lesions anterior and medial to the index lesion in the left breast s uspicious for DCIS. Recommend correlation with ultrasound if breast conservation surgery is being co nsidered. 2. No evidence of malignancy in the right breast. BIRAD: RIGHT BREAST: 1 Negative. LEFT BREAST: 6 Known biopsy-proven malignancy. Appropriate action should be taken. RECOMMENDATION: RECOMMENDED FOLLOW-UP: Per Dr. Raines. TECHNICAL DOCUMENTATION: JOB ID: [id number] 2010 [employer]- All Rights Reserved Reading location - IP/workstation name: [email or web address]
== END ==
LOC: RAD 09:07
PROVIDERS: ATTEND Surgery
DX: N63.20 Unspecified lump in the left breast, unspecified quadrant (principal); N64.89 Other specified disorders of breast
CPT/HCPCS: 82565; A9576; C8908; 77049